=== PATIENT | female | born 1970 ===

== ENCOUNTER 2024-12-22 14:22 | Outpatient (AMB) | payer MEDICAID, SELFPAY ==
--- NOTE | 2024-12-22 14:37 | XR_ITS ---
Examination: Bilateral knees 2 views Right lateral knee left lateral knee 2 views Bilateral axial knees single view TECHNIQUE: Bilateral AP knees standing single view, bilateral PA knees standing single view 30 degrees flexion Standing right lateral knee left lateral knee 2 views Bilateral axial knees single view total 5 views Exam date and time: December 22, 2024 1646 hours INDICATIONS: Bilateral knee pain beginning one month ago. FINDINGS: Moderate osteopenia Moderate narrowing medial joint space right knee Mild to moderate osteoarthritis right patellofemoral joint Moderate to advanced narrowing lateral joint space left knee Moderate osteoarthritis patellofemoral joint No fractures IMPRESSION: Osteoarthritis as above
[2024-12-22 14:42] VITALS: BP 135/77; PULSE 78; RESP 18; TEMP 36.6; O2SAT 98; BMI 31.9
--- NOTE | 2024-12-22 14:42 | PD.ORTHCLVIS ---
Vital signs 12/22/24 14:42 Height 1.52 m Height Method Stated Weight 74.162 kg Weight Measurement Method Standing Scale BMI 31.9 BP 135/77 H Blood Pressure Source Automatic Cuff Blood Pressure Location Left Upper Arm Position Sitting Respiration 18 Pulse 78 Pulse Source Monitor Temp 97.8 F Temp Source Temporal Artery Scan Pulse Oximetry (%) 98 Oxygen Delivery Method Room Air Med/Allergies Allergies & Medications Allergies No Known Allergies Allergy (Verified 12/22/24 14:42) Medication Reconciliation Unobtainable 12/22/24 [History Confirmed 12/22/24] Exam Exam Patient is in no acute distress and is cooperative with the examination today. Breathing is nonlabored. In no respiratory distress. Bilateral extremities were evaluated and demonstrates sensation intact to light touch. Palpable pedal pulses are present. No significant edema is present. Bilateral hips were examined. The patient has no pain with log roll of the hips. Internal rotation to 30 degrees and external rotation to 30 degrees is painless. Negative FADIR. The left knee was examined. The left knee is in neutral alignment. Range of motion from 0-120 degrees. Knee is stable to varus and valgus as well as AP translation with <5mm. Patient has a negative McMurrays. There is no pain with patellofemoral compression and no crepitus noted. The knee is nontender to palpation diffusely. The right knee was also examined. The right knee is in neutral alignment. Range of motion from 0-120 degrees. Knee is stable to varus and valgus as well as AP translation with <5mm. Patient has a negative McMurrays. There is no pain with patellofemoral compression and no crepitus noted. The knee is nontender to palpation diffusely. Weightbearing x-rays demonstrate preserved joint spaces. She has minimal osteophytes. She has mild arthritis Assessment and Plan Problem List (1) Lumbar radiculopathy: Status: Acute Plan: Patient is a 54-year-old female with bilateral lumbar radiculopathy.. She has pain that starts in her upper thigh and radiates all the way down to her toes. She has minimal pain in her knee. I do not see her spine MRI but she was told that they are abnormal. She seems a little confused. I discussed with her that she needs to either see a spine or neurologist. She may benefit from an EMG. Plan The patient seems very confused. She has pain that starts in her buttocks and radiates down her toes. I discussed with her that her arthritis is the least of her problems. She has mild arthritis on x-rays. We explained this to her in great detail using a certified study abroad coordinator. I am not so sure how much she understands Office Procedures GNS Level of Care Nursing/Assessment Patient Status: Initial/New Patient Nursing Assessment/Reassesment: Medication Reconciliation, Update PMH in EMR and Vital Signs Coordination of Care: Complex Care and Chronic Disease 1-5, Education Complex Pt/Fam, Consent,records obtained, informed consent, 1 Ins Authorization, Lab and Imaging orders, Results/Orders obtained and Staff clarify orders Special Needs: Language special needs New Patient Charge New Patient Point Assignment: 1124 New Patient Point Charge: DROP WIRE ALIGNER Level 4 ([id number]) MA Intake Visit Data Collection New Patient or Established: New Patient (never been to [facility]) Reason for Visit:: LEFT KNEE PAIN Seen by Clinical Staff ONLY (RN/MA): No Metal Can Inspector Required: Yes PCP or OBGYN visit in last 3 months: Yes Hx Now: No Do You Feel Safe at Home: Yes Authorities Contacted: N/A Questionairres Past Medical History Past Medical History Have you ever been diagnosed with any of the following: Subjective Visit Visit for: new patient and knee Immunization / Flu Flu Vaccine in the Last 12 Months: No Flu Vaccine Exclusion Criteria: No Exclusion Criteria History of Present Illness Gama is a pleasant 54 year old female presenting with left leg numbness. She had a fall 1 year ago, followed by ACL repair and menisectomy. She reports numbness in both feet, left more than right. She has not tried conservative measures, including physical therapy or injections. Her PCP did an MRI of her spine and told her she has nerve problems. She has not had any EMG. She is convinced from the nerve block that she had. Pain Pain level (0-10): 8 Pain duration: ALL DAY Pain location: inside (medial) and anterior Pain quality: sharp, aching and tingling Pain timing: increases with activity Associated signs & symptoms: numbness Ambulatory data Ambulatory device: none Treatments Improvement with previous injections: No Improvement with PT: No Improvement with NSAIDS: no Review of Systems Review of Systems: All systems negative unless otherwise noted in HPI.
== END 2024-12-22 15:18 | disposition home or self-care (01) ==
PROVIDERS: Supervising Provider Orthopaedic Surgery Adult Reconstructive Orthopaedic Surgery; Visit Provider Orthopaedic Surgery Adult Reconstructive Orthopaedic Surgery
DX: M54.16 Radiculopathy, lumbar region (principal); M17.0 Bilateral primary osteoarthritis of knee
CPT/HCPCS: 73564; 99204; G0463